=== PATIENT | female | born 1975 | race Caucasian/White ===

== ENCOUNTER 2024-06-16 13:03 | Emergency (ER) | payer MEDICAID ==
[~2024-06-16] VITALS: Ht 157.5 cm; Wt 70.0 kg
[2024-06-16 13:09] VITALS: O2SAT 99
[2024-06-16 15:24] LABS: HCG SCREEN NEGATIVE
[2024-06-16] MEDS: ACETAMINOPHEN 325MG TABLET PO ONE (15:56)
[2024-06-16] MEDS: KETOROLAC 15MG/ML VIAL IM ONE (22:23)
[2024-06-16 23:44] VITALS: BP 128/79; PULSE 65; RESP 16; TEMP 36.7; O2SAT 100
== END 2024-06-16 23:47 | disposition home or self-care (01) ==
LOC: ER 13:03
DX: R51.9 Headache, unspecified (principal); Z88.0 Allergy status to penicillin; X58.XXXA Exposure to other specified factors, initial encounter; Y93.89 Activity, other specified; Y92.89 Other specified places as the place of occurrence of the external cause; Y99.8 Other external cause status
CPT/HCPCS: 84703; 73552; 72170; 73080; 73560; 73610; 70450; 72125; 74176; 96372; 99285; J1885; Z7610